=== PATIENT | female | born 1970 | race Caucasian/White ===

== ENCOUNTER → 2023-05-05 07:56 | Outpatient (REF) | payer BC, SELFPAY ==
[2023-05-05 09:20] LABS: Vitamin D, 25-OH*** 35.6 ng/mL (30-80)
[2023-05-05 10:09] LABS: Vitamin B12 657 pg/ml (239-931)
[2023-05-06 23:47] LABS: Vitamin D 1,25 Dihydroxy 65.7 pg/mL (19.9-79.3)
== END ==
LOC: REG 07:56
PROVIDERS: ATTENDING PHYSICIAN Otolaryngology; FAMILY PHYSICIAN Internal Medicine
DX: K14.0 Glossitis (principal)
CPT/HCPCS: 36415; 82306; 82607; 82652; 82746

== ENCOUNTER → 2023-06-08 07:41 | Outpatient (REF) | payer BC, SELFPAY | LOC: EMG 07:41 | PROVIDERS: ATTENDING PHYSICIAN Psychiatry & Neurology Neurology; FAMILY PHYSICIAN Internal Medicine | DX: R20.2 Paresthesia of skin (principal); R20.0 Anesthesia of skin | CPT/HCPCS: 95886; 95912 ==

== ENCOUNTER → 2023-07-24 06:36 | Outpatient (REF) | payer BC, SELFPAY | LOC: WDC 06:36 | PROVIDERS: ATTENDING PHYSICIAN Obstetrics & Gynecology; FAMILY PHYSICIAN Internal Medicine | DX: Z12.31 Encounter for screening mammogram for malignant neoplasm of breast (principal) | CPT/HCPCS: 77063; 77067 ==

== ENCOUNTER → 2023-09-15 15:32 | Outpatient (REF) | payer BC, SELFPAY ==
[2023-09-15 17:01] LABS: Beta HCG Quantitative 8.51 mIU/ml
== END ==
LOC: REG 15:32
PROVIDERS: ATTENDING PHYSICIAN Obstetrics & Gynecology; FAMILY PHYSICIAN Internal Medicine
DX: N91.2 Amenorrhea, unspecified (principal)
CPT/HCPCS: 36415; 84702

== ENCOUNTER → 2023-10-06 16:40 | Outpatient (REF) | payer BC, SELFPAY ==
[2023-10-06 18:49] LABS: Beta HCG Quantitative 6.99 mIU/ml; FSH 73.2 mIU/ml
[2023-10-06 19:04] LABS: Estradiol 21.5 pg/ml
== END ==
LOC: REG 16:40
PROVIDERS: ATTENDING PHYSICIAN Obstetrics & Gynecology
DX: N91.2 Amenorrhea, unspecified (principal)
CPT/HCPCS: 36415; 82670; 83001; 83002; 84702

== ENCOUNTER → 2023-12-17 13:21 | Outpatient (REF) | payer BC, SELFPAY | LOC: RAD 13:21 | PROVIDERS: ATTENDING PHYSICIAN Specialist; FAMILY PHYSICIAN Internal Medicine | DX: N28.89 Other specified disorders of kidney and ureter (principal) | CPT/HCPCS: 76775 ==

== ENCOUNTER → 2024-01-04 14:31 | Outpatient (REF) | payer BC, SELFPAY | LOC: CPAP 14:31 | PROVIDERS: ATTENDING PHYSICIAN Obstetrics & Gynecology | DX: Z11.51 Encounter for screening for human papillomavirus (HPV) (principal); Z01.419 Encounter for gynecological examination (general) (routine) without abnormal findings | CPT/HCPCS: 87624; G0123 ==

== ENCOUNTER → 2024-02-17 08:13 | Outpatient (REF) | payer BC, SELFPAY ==
[2024-02-19 10:14] LABS: Aptima Media Type MultiTest Swab; Chlamydia trachomatis by TMA Negative (Negative); Neisseria gonorrhoeae by TMA Negative (Negative); Specimen Source Vaginal
[2024-02-19 15:42] LABS: Bacterial Vaginosis by TMA Negative; Candida glabrata by TMA Negative; Candida species by TMA Negative; Trichomonas vaginalis by TMA Negative
== END ==
LOC: CPAP 08:13
PROVIDERS: ATTENDING PHYSICIAN Student in an Organized Health Care Education/Training Program
DX: Z11.3 Encounter for screening for infections with a predominantly sexual mode of transmission (principal)
CPT/HCPCS: 81513; 87481; 87491; 87591; 87661

== ENCOUNTER 2024-04-19 00:35 | Emergency (ER) | payer BC, SELFPAY ==
[2024-04-19 00:46] VITALS: BP 134/80
[2024-04-19 02:49] VITALS: BMI 23.2
[2024-04-19 02:53] VITALS: BP 103/76
[2024-04-19] MEDS: KEFLEX 500 MG PO (04:55)
[2024-04-19] MEDS: TORADOL 60 MG IM (04:55)
--- NOTE | 2024-04-19 05:24 | ED.GENMED ---
History of Present Illness
General
Chief Complaint: Musculo-Skeletal Complaint
Source: patient
Exam Limitations: none
Time Seen by Provider: 04/19/24 04:28
Nursing documentation reviewed up to this point in time: agreed with
History of Present Illness
History of Present Illness:
This is a 53-year-old woman with no significant past medical history who states while getting ready for bed she tripped over kittens and inadvertently stubbed her left small toe on her bed frame injuring her left small toe. She states initially the
toe was significantly bent laterally, currently position has improved but has not completely normalized. She complains of significant pain, swelling and bruising base of her left small toe. She denies foot pain. She did note scant blood at the
base of her toe but no active bleeding. She has not taken anything for pain.
She takes no anticoagulants. No history of immunocompromise. No previous toe injuries.
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
Patient states she received a Tdap vaccination at her PCPs office within the past year.
Past History
Past History
ED Past Medical History: GERD and Hypercholesterolemia
ED Past Surgical History: Gynecological (Breast reconstruction) and Tonsilectomy
Social History
Tobacco: Former smoker
Personal:
Living: with family
Employment: Employed
Family History
Family History: Other (Noncontributory)
Phy Exam
Physical Exam
Physical Exam:
GENERAL: 53-year-old woman appears her stated age, bright and alert, pleasant, easily communicative and in no acute distress. is accompanying.
EYE: The head is normocephalic, atraumatic.
NECK: Supple, nontender
ENT: oral mucosa is moist.
CARDIAC: Regular rate and rhythm. no murmur.
LUNGS: No respiratory distress.
ABDOMEN: Soft, nondistended
NEUROLOGICAL: Alert and oriented x3, no focal neuro deficits.
SKIN: Warm and dry, normal color, good turgor. No rash.
MUSCULOSKELETAL: No C/C/E. peripheral pulses are full and equal b/l. Left small toe has mild soft tissue swelling and early ecchymosis base of the toe with exquisite tenderness about the base to mid aspect of the left small toe. The left small toe
is minimally angulated dorsally. Markedly limited range of motion of the left small toe related to pain. Distal sensation and strength intact. There is no tenderness to the foot nor fellow toes. There is a 0.5 cm horizontal laceration plantar
base of the small toe that is epidermal in depth. No bleeding.
PSYCH: Normal and appropriate interaction.
Course
Orders/Labs/Results
Orders:
Orders
04/19/24 00:49
Toes 2 Views, Left CR [CR Toe(s) Min 2 Vw Left] Urgent
Comment:
Reason For Exam: JAMMED TOE
Indicate Which Toe:: Fifth
04/19/24 04:45
Ice Pack-Treatment DIRECTED
Location: left foot
Cast Shoe Left-Treatment ONCE
Cephalexin Monohydrate [Keflex] 500 mg PO NOW STA
Ketorolac [Toradol] 60 mg IM NOW STA
Vital Signs
Initial and Last Documented VS:
Initial Vital Signs
Temp Pulse Resp BP Pulse Ox
98 F 70 20 134/80 98
04/19/24 00:46 04/19/24 00:46 04/19/24 00:46 04/19/24 00:46 04/19/24 00:46
Last Documented Vital Signs
Temp Pulse Resp BP Pulse Ox
98 F 67 16 103/76 97
04/19/24 00:46 04/19/24 02:53 04/19/24 02:53 04/19/24 02:53 04/19/24 02:53
MDM/Problems Addressed
Differential Diagnosis Includes:
Patient presents for left small toe pain, injury after stubbing her toe at home.
X-ray shows fracture of the distal aspects of the proximal phalanx of the fifth digit with dorsal displacement. There is very superficial laceration at the plantar base of the toe that is only epidermal in depth, not consistent with an open
fracture.
Patient has been offered Percocet for pain which she declines. Agreeable to IM Toradol.
Superficial wound has been thoroughly irrigated by myself. Will plan for bacitracin, gauze, loose heydi tape and cast shoe. Patient has crutches at home.
Although this laceration is very superficial will place on Keflex for infection prevention.
Recommend prompt follow-up with orthopedics versus podiatry. Patient plans to call [employer] boat [employer], Dr. Saenz today.
*Radiology
Radiology exam reviewed: preliminary read by ED provider (X-ray shows fracture distal aspects of the proximal phalanx left small toe with mild dorsal displacement.)
*Pulse Oximetry
Patient hypoxic: no
*Critical Care Note
Total Time (30-74mins, 75-104mins- exclusive of procedures): Not Applicable
Update Note
Update Note:
05:15
Patient has had moderate improvement after IM dose of Toradol.
Left small toe dressed with bacitracin/gauze and loose heydi taped to his fellow toe. She has been placed in a cast shoe and recommend nonweightbearing to the left small toe but may bear weight on her heel versus use crutches. She has crutches at
home.
Patient plans to call podiatry, Dr. Saenz today.
I have written a prescription for ibuprofen for as needed pain.
ED Attending Note
-
Portions of this chart may have been created with voice recognition software.� Occasional wrong word or��sound alike� substitutions may have occurred due to the inherent limitations of voice recognition software.
Discharge Plan
Departure
Patient Disposition: Home (Routine Discharge)
Date of Disposition: 04/19/24
Time of Disposition: 05:24
Patient with high blood pressure during this ER visit?: No
Condition: Good
Discharge Problem:
Closed fracture of fifth toe of left foot
Instructions: Toe Fracture ED
Prescriptions:
New
ibuprofen 800 mg tablet
800 mg PO QIDPRN PRN (Reason: pain, fever) Qty: 30 0RF
cephalexin 500 mg capsule
1,000 mg PO BID 7 Days Qty: 28 0RF
Referrals:
Dalton Saenz DPM [Active] - Follow up in 2-3 days
Luzmaria Lynch MD [Family Provider] -
Interventions
Interventions:
*Risk Screen - Suicide Last Done: 04/19/24 00:46
*General Assessment Last Done: 04/19/24 02:47
*Neglect/Abuse Screening Last Done: 04/19/24 00:46
ED- Fall Risk Assessment Last Done: 04/19/24 02:47
*ED COVID-19 Vaccine History Last Done: 04/19/24 02:47
*Nursing Disposition Last Done: 04/19/24 05:39
ED-Musculoskeletal Assessment Last Done: 04/19/24 02:47
Discharge Date and Time
Discharge Date/Time: 04/19/24 05:27
Print Language: SYRIAC
== END 2024-04-19 05:27 | disposition home or self-care (01) ==
LOC: EMR 00:35
PROVIDERS: EMERGENCY PHYSICIAN Emergency Medicine; FAMILY PHYSICIAN Internal Medicine
DX: S92.502A Displaced unspecified fracture of left lesser toe(s), initial encounter for closed fracture (principal); X58.XXXA Exposure to other specified factors, initial encounter; Z23 Encounter for immunization; K21.9 Gastro-esophageal reflux disease without esophagitis; E78.00 Pure hypercholesterolemia, unspecified; Z87.891 Personal history of nicotine dependence
CPT/HCPCS: 99283; 96372; 73660

== ENCOUNTER → 2024-07-28 08:03 | Outpatient (REF) | payer BC, SELFPAY | LOC: WDC 08:03 | PROVIDERS: ATTENDING PHYSICIAN Nurse Practitioner; FAMILY PHYSICIAN Internal Medicine | DX: Z12.31 Encounter for screening mammogram for malignant neoplasm of breast (principal) | CPT/HCPCS: 77063; 77067 ==

== ENCOUNTER → 2024-08-23 07:40 | Outpatient (REF) | payer BC, SELFPAY ==
[2024-08-23 08:43] LABS: % Basophils 1.1 % (0-2); % Eosinophils 2.8 % (0-6); % Immature Granulocytes 0.2 % (0-0.5); % Lymphocytes 40.9 % (20.5-51.1); % Monocytes 9.1 % (1.7-9.3); % Neutrophils 45.9 % (42.2-75.2); Absolute Basophils 0.1 10^3/uL (0-0.2); Absolute Eosinophils 0.1 10^3/uL (0-0.7); Absolute Lymphocytes 1.9 10^3/uL (1.2-3.4); Absolute Monocytes 0.4 10^3/uL (0.1-0.6); Absolute Neutrophils 2.1 10^3/uL (1.4-6.5); Hematocrit 41.6 % (37.0-47.0); Hemoglobin 14.1 g/dL (12.0-16.0); Mean Corp Hgb Conc. 33.9 g/dL (33.0-37.0); Mean Corpuscular Hgb 30.3 pg (27.0-31.0); Mean Corpuscular Volume 89.5 fL (81.0-99.0); Mean Platelet Volume 10.8 fL (7.4-10.4); Nucleated Red Blood Cells % 0 %; Platelet Count 226 10^3/uL (130-400); Red Blood Cell Count 4.65 10^6/uL (4.20-5.40); Red Cell Dist. Width 12.7 % (11.5-14.5); White Blood Cell Count 4.6 10^3/uL (4.8-10.8)
[2024-08-23 09:14] LABS: ALT (SGPT) 20 U/L (0-35); AST (SGOT) 26 U/L (14-36); Alkaline Phosphatase 52 U/L (38-126); Blood Urea Nitrogen 18 mg/dl (7-17); Carbon Dioxide 27 mmol/L (22-30); Chloride 107 mmol/L (98-107); Glucose 101 mg/dl (70-99); HDL Cholesterol 107 mg/dl; Potassium 4.5 mmol/L (3.5-5.1); Sodium 141 mmol/L (135-145); Total Bilirubin 0.9 mg/dl (0.2-1.3); Triglyceride 72 mg/dl (10-149); Very Low Density Lipoprotein 14 mg/dl (0-30); eGFR > 60.00
[2024-08-23 09:24] LABS: LDL Cholesterol, Calculated 207 mg/dl; Total Cholesterol 328 mg/dl (50-199)
== END ==
LOC: REG 07:40
PROVIDERS: ATTENDING PHYSICIAN Internal Medicine
DX: Z00.00 Encounter for general adult medical examination without abnormal findings (principal)
CPT/HCPCS: 36415; 80053; 80061; 85025

== ENCOUNTER → 2025-02-20 06:39 | Outpatient (REF) | payer BC, SELFPAY | LOC: RAD 06:39 | PROVIDERS: ATTENDING PHYSICIAN Obstetrics & Gynecology; FAMILY PHYSICIAN Internal Medicine | DX: R10.20 Pelvic and perineal pain unspecified side (principal) | CPT/HCPCS: 76830; 76856 ==

== ENCOUNTER → 2025-03-06 10:06 | Outpatient (REF) | payer BC, SELFPAY ==
[2025-03-06 11:04] LABS: Urine Character Clear (Clear)
[2025-03-06 11:08] LABS: Hematocrit 40.6 % (37.0-47.0); Hemoglobin 13.6 g/dL (12.0-16.0); Mean Corp Hgb Conc. 33.5 g/dL (33.0-37.0); Mean Corpuscular Volume 90.4 fL (81.0-99.0); Nucleated Red Blood Cells % 0 %; Platelet Count 210 10^3/uL (130-400); Red Cell Dist. Width 12.6 % (11.5-14.5)
[2025-03-06 12:00] LABS: ALT (SGPT) 82 U/L (0-35); AST (SGOT) 38 U/L (14-36); Albumin 4.7 g/dl (3.5-5.0); Alkaline Phosphatase 52 U/L (38-126); Blood Urea Nitrogen 15 mg/dl (7-17); Calcium 9.9 mg/dl (8.4-10.2); Carbon Dioxide 30 mmol/L (22-30); Chloride 103 mmol/L (98-107); Glucose 93 mg/dl (70-99); HDL Cholesterol 91 mg/dl; LDL Cholesterol, Calculated 117 mg/dl; Potassium 4.5 mmol/L (3.5-5.1); Sodium 136 mmol/L (135-145); Total Protein 7.6 g/dl (6.3-8.2); Very Low Density Lipoprotein 16 mg/dl (0-30); eGFR > 60.00
== END ==
LOC: REG 10:06
PROVIDERS: ATTENDING PHYSICIAN Surgery; FAMILY PHYSICIAN Internal Medicine
DX: R82.90 Unspecified abnormal findings in urine (principal); Z00.00 Encounter for general adult medical examination without abnormal findings; R82.998 Other abnormal findings in urine
CPT/HCPCS: 36415; 80053; 80061; 81003; 85025